=== PATIENT | male | born 1970 | race Caucasian/White ===

== ENCOUNTER 2022-04-13 11:46 | Outpatient (CLI) | payer BC, SELFPAY | END 2022-04-13 11:47 | disposition home or self-care (01) | PROVIDERS: PCP Family Medicine; Visit Provider Family Medicine | DX: M17.11 Unilateral primary osteoarthritis, right knee (principal); M25.561 Pain in right knee | CPT/HCPCS: 64454 ==

== ENCOUNTER 2022-06-01 11:53 | Outpatient (CLI) | payer BC, SELFPAY | END 2022-06-01 11:54 | disposition home or self-care (01) | LOC: INJ CL 11:53 | PROVIDERS: PCP Family Medicine; Visit Provider Family Medicine | DX: M17.11 Unilateral primary osteoarthritis, right knee (principal); M25.561 Pain in right knee; G89.29 Other chronic pain | CPT/HCPCS: 64624; J2250; J3010 ==

== ENCOUNTER 2024-02-03 14:43 | Outpatient (CLI) | payer BC, SELFPAY | END 2024-02-03 14:44 | disposition home or self-care (01) | LOC: INJ CL 14:45 | PROVIDERS: PCP Family Medicine; Visit Provider Family Medicine | DX: M17.11 Unilateral primary osteoarthritis, right knee (principal); M25.561 Pain in right knee | CPT/HCPCS: 64454 ==

== ENCOUNTER 2024-02-21 12:39 | Outpatient (CLI) | payer MEDICARE, MEDICAID, SELFPAY | END 2024-02-21 12:40 | disposition home or self-care (01) | LOC: INJ CL 12:40 | PROVIDERS: PCP Family Medicine; Visit Provider Family Medicine | DX: M25.561 Pain in right knee (principal); G89.29 Other chronic pain | CPT/HCPCS: 64624; J2250; J3010 ==

== ENCOUNTER 2025-01-16 01:38 | Outpatient (CLI) | payer MEDICARE, MEDICAID, SELFPAY | END 2025-01-16 01:39 | disposition home or self-care (01) | LOC: AMB 01-19 14:53 | PROVIDERS: PCP Family Medicine; Visit Provider Emergency Medicine | DX: R06.09 Other forms of dyspnea (principal) | CPT/HCPCS: A0425; A0434 ==